=== PATIENT | female | born 1935 | race Caucasian/White ===

== ENCOUNTER 2020-08-16 16:32 | Inpatient (IN) | payer MEDICARE, OTHER ==
[~2020-08-16] VITALS: Ht 160 cm; Wt 56.7 kg
[2020-08-16 18:02] LABS: HEMOGLOBIN 12.9 gm/dl (12.3-15.3); RED BLOOD COUNT 4.3 M/UL (4.00-5.10); WHITE BLOOD COUNT 11.6 K/UL (4.5-11.0)
[2020-08-17 02:28] LABS: HEMOGLOBIN 12.4 gm/dl (12.3-15.3); RED BLOOD COUNT 4.08 M/UL (4.00-5.10); WHITE BLOOD COUNT 9.7 K/UL (4.5-11.0)
[2020-08-17] MEDS ORDERED: NORCO 7.5-3251 EACH PO (11:56)
[2020-08-18 03:15] LABS: HEMOGLOBIN 10.4 gm/dl (12.3-15.3); RED BLOOD COUNT 3.31 M/UL (4.00-5.10); WHITE BLOOD COUNT 13.1 K/UL (4.5-11.0)
[2020-08-18 03:42] LABS: BUN/CREATININE RATIO 19 (0-10)
[2020-08-19 09:19] LABS: HEMOGLOBIN 9.3 gm/dl (12.3-15.3)
[2020-08-19 09:23] LABS: RED BLOOD COUNT 2.97 M/UL (4.00-5.10)
[2020-08-19 09:43] LABS: BUN/CREATININE RATIO 24 (0-10)
[2020-08-20 04:05] LABS: HEMOGLOBIN 8.9 gm/dl (12.3-15.3); RED BLOOD COUNT 2.88 M/UL (4.00-5.10); WHITE BLOOD COUNT 9.9 K/UL (4.5-11.0)
[2020-08-20] MEDS ORDERED: POLYETHYLENE GL17 GM PO (09:49)
[2020-08-20] MEDS ORDERED: DOCUSATE SODIU100 MG PO (09:49)
--- NOTE | 2020-08-20 17:43 | NUR ---
08/20/20 173 [facility] NOTIFIED, I FORGOT TO REMOVE IV FROM LEFT AC THEY WILL TAKE IT OUT
== END 2020-08-20 17:18 | DRG 481 ==
LOC: ER1 16:32 → M/S 17:45 → CDU 17:45 → M/S 23:13
PROVIDERS: Orthopaedic Surgery; Physician Assistant; ADMIT Internal Medicine
PROC: 0QS606Z Reposition Right Upper Femur with Intramedullary Internal Fixation Device, Open Approach (ICD-10-PCS; principal; 2020-08-17 11:45)
DX: S72.21XA Displaced subtrochanteric fracture of right femur, initial encounter for closed fracture (principal); N17.9 Acute kidney failure, unspecified; W01.0XXA Fall on same level from slipping, tripping and stumbling without subsequent striking against object, initial encounter; D72.829 Elevated white blood cell count, unspecified; S72.141A Displaced intertrochanteric fracture of right femur, initial encounter for closed fracture; Z20.828 Contact with and (suspected) exposure to other viral communicable diseases; R73.9 Hyperglycemia, unspecified; F41.9 Anxiety disorder, unspecified; D64.9 Anemia, unspecified; R73.03 Prediabetes; K59.00 Constipation, unspecified; Y93.9 Activity, unspecified; Z82.49 Family history of ischemic heart disease and other diseases of the circulatory system; Y92.009 Unspecified place in unspecified non-institutional (private) residence as the place of occurrence of the external cause
CPT/HCPCS: 36415; 71045; 73502; 73552; 76000; 80048; 80053; 81001; 82962; 83036; 85025; 85027; 85610; 85730; 86850; 86900; 86901; 93005; 96374; 96375; 97110-GP-CQ; 97116-GP-CQ; 97162; 97166; 97530; 97535; 99285; C1713; J0690; J1100; J1644; J1650; J2001; J2060; J2250; J2270; J2405; J2704; J2710; J2765; J3010; J3480; J7030; J7120; J7121; U0002